=== PATIENT | female | born 2000 | race Caucasian/White ===

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

== ENCOUNTER 2022-08-01 16:36 | Emergency (ER) | payer OTHER, SELFPAY ==
--- NOTE | 2022-08-01 16:51 | ED.DIZZY ---
HPI - Dizziness General Chief Complaint: Nausea/Vomiting/Diarrhea <Rosalina Castillo CNP - Last Filed: 08/01/22 17:06> Stated Complaint: n+v dizziness <Rosalina Castillo CNP - Last Filed: 08/01/22 17:06> Time Seen by Provider: 08/01/22 17:39 <Rosalina Castillo CNP - Last Filed: 08/01/22 17:06> Source: patient <Wolf Josue MD - Last Filed: 08/02/22 00:52> Mode of arrival: ambulatory <Wolf Josue MD - Last Filed: 08/02/22 00:52> Limitations: no limitations <Wolf Josue MD - Last Filed: 08/02/22 00:52> History of Present Illness HPI Narrative: Patient feeling sick since yesterday vomited 4 times with dizziness body aches tiredness and chills no urinary complaints, complaining of diffuse abdominal discomfort++ no upper respiratory symptoms no other family member sick <Wolf Josue MD - Last Filed: 08/02/22 00:52> Related Data Home Medications: Home Medications Medication Instructions Recorded Confirmed fluoxetine 40 mg capsule 1 cap PO DAILY 06/24/21 06/24/21 Previous Rx's Medication Instructions Recorded cefuroxime axetil 250 mg tablet 250 mg PO BID 7 days #14 tabs 08/01/22 ondansetron 4 mg disintegrating 4 mg PO Q6-8H PRN nausea and 08/01/22 tablet vomiting #7 tabs <Rosalina Castillo CNP - Last Filed: 08/01/22 17:06> Allergies/Adverse Reactions: Allergies Allergy/AdvReac Type Severity Reaction Status Date / Time No Known Allergies Allergy Unverified 03/28/20 19:42 [No Known Allergies*] <Rosalina Castillo CNP - Last Filed: 08/01/22 17:06> Review of Systems Review of Systems: Yes all other systems are reviewed and are negative <Wolf Josue MD - Last Filed: 08/02/22 00:52> PMF[facility] Past Medical History Medical History: Medical History Depression <Rosalina Castillo CNP - Last Filed: 08/01/22 17:06> Social History Social History: Social History Alcohol intake: never Smoked in Last 30 Days: No Advance Directives: No Advance Directives Information Provided: No Patient : No <Rosalina Castillo CNP - Last Filed: 08/01/22 17:06> Physical Exam Vital Signs: Vital Signs: Last Vital Signs Temp 99.4 F 08/01/22 18:13 Pulse 103 H 08/01/22 18:13 Resp 16 08/01/22 18:13 BP 98/50 L 08/01/22 18:13 Pulse Ox 97 08/01/22 18:13 O2 Del Method 08/01/22 18:13 BMI result Body Mass Index 49.1 <Rosalina Castillo CNP - Last Filed: 08/01/22 17:06> Vital Signs: Last Vital Signs Temp 99.4 F 08/01/22 18:13 Pulse 103 H 08/01/22 18:13 Resp 16 08/01/22 18:13 BP 98/50 L 08/01/22 18:13 Pulse Ox 97 08/01/22 18:13 O2 Del Method 08/01/22 18:13 BMI result Body Mass Index 49.1 <Wolf Josue MD - Last Filed: 08/02/22 00:52> Appearance: Alert. Oriented X3. No acute distress. Eyes: No pallor or icterus ENT: Pharynx normal. Oral Mucosa moist Neck: Normal inspection. Neck supple. CVS: Normal heart rate and rhythm. Pulses normal. Respiratory: No respiratory distress. Equal air entry bilateral, no wheezing/rales/rhonchi Abdomen: Soft , mild epigastric tenderness. Bowel sounds are present, no mass palpable, no CVA tenderness Skin: Skin warm and dry. Normal skin color. Normal skin turgor. Extremities: No lower extremity edema. No calf tenderness Neuro: Oriented X 3. No motor deficit. <Wolf Josue MD - Last Filed: 08/02/22 00:52> Course Course Course Narrative: This is an RME: Additional HPI, ROS, PE not included below will be deferred to primary provider. Patient is a 22 year old female who presents to the ED for abdominal pain, nausea, vomiting x4 times today, yellow/green. Onset was last night. Today has associated dizziness. States last night she ate cheeseburger made at home and fruit snacks, a few hours later she began feeling ill. Denies any recent ill contacts. Plan: viral testing, labs, ondansetron orally. <Rosalina Castillo CNP - Last Filed: 08/01/22 17:06> Medications Administered Discontinued Medications Generic Name Dose Route Start Last Admin Trade Name Freq PRN Reason Stop Dose Admin Cefuroxime Axetil 250 mg 08/01/22 19:59 08/01/22 20:40 Cefuroxime Axetil 250 Mg Tablet PO 08/01/22 20:00 250 mg ONCE ONE Administration Ondansetron HCl 4 mg 08/01/22 17:03 08/01/22 17:46 Ondansetron Odt 4 Mg Tab.Rapdis TRANSLINGU 08/01/22 17:04 4 mg ONCE ONE Administration <Rosalina Castillo CNP - Last Filed: 08/01/22 17:06> Medications Administered Discontinued Medications Generic Name Dose Route Start Last Admin Trade Name Freq PRN Reason Stop Dose Admin Cefuroxime Axetil 250 mg 08/01/22 19:59 08/01/22 20:40 Cefuroxime Axetil 250 Mg Tablet PO 08/01/22 20:00 250 mg ONCE ONE Administration Ondansetron HCl 4 mg 08/01/22 17:03 08/01/22 17:46 Ondansetron Odt 4 Mg Tab.Rapdis TRANSLINGU 08/01/22 17:04 4 mg ONCE ONE Administration <Wolf Josue MD - Last Filed: 08/02/22 00:52> Medical Decision Making Medical Decision Making MDM Narrative: Patient acute nausea/vomiting workup shows UTI patient denies any symptoms will discharge patient home on Ceftin at this time patient taking p.o. fluids <Wolf Josue MD - Last Filed: 08/02/22 00:52> Lab Data [facility] Lab Attestation statement: I reviewed the patient's lab results. <Wolf Josue MD - Last Filed: 08/02/22 00:52> Result Diagrams: 08/01/22 17:24 08/01/22 17:24 <Rosalina Castillo, TECHNICAL SUPERVISOR - Last Filed: 08/01/22 17:06> Labs: Lab Results 08/01/22 08/01/22 08/01/22 Range/Units 17:24 17:24 17:29 WBC 13.0 H (4.8-10.8) X10*3/uL RBC 5.17 (4.20-5.50) X10*6/uL Hgb 13.3 (12.0-16.0) g/dl Hct 41.3 (37.0-47.0) % MCV 79.9 L (80.0-98.0) fL MCH 25.7 L (27.0-33.0) pg MCHC 32.2 (31.0-35.0) g/dl RDW 14.1 (11.0-16.0) % Plt Count 272 (160-400) X10*3/uL MPV 11.8 (9.4-12.3) fL Immature Gran % (Auto) 0.3 (0.0-0.4) % Neut % (Auto) 92.4 H (45-73) % Lymph % (Auto) 3.1 L (20-40) % [place] % (Auto) 3.9 (2-11) % Eos % (Auto) 0.1 (0-4) % Baso % (Auto) 0.2 (0-2) % Lymph # (Auto) 0.4 L (1.2-4.9) X10*3/uL [place] # (Auto) 0.5 (0.1-1.2) X10*3/uL Eos # (Auto) 0.0 (0.0-0.4) X10*3/uL Baso # (Auto) 0.0 (0.0-0.2) X10*3/uL Abs Immat Gran (auto) 0.04 H (0.00-0.03) X10*3/uL Absolute Neuts (auto) 12.0 H (2.0-8.3) x10*3/uL Absolute Nucleated RBC 0.000 (0.0-0.012) X10*3/uL Nucleated RBC % (auto) 0.0 (0.0-0.2) /100WBC Sodium 138 (135-145) mmol/L Potassium 4.4 (3.3-5.1) mmol/L Chloride 105 (96-108) mmol/L Carbon Dioxide 21 L (22-29) mmol/L Anion Gap 16 (12-20) BUN 15 (9-16) mg/dL Creatinine 0.79 (0.5-1.4) mg/dL Estim Creat Clear Calc 157.3 Estimated GFR > 60 Random Glucose 119 H (60-115) mg/dL Calcium 8.8 (8.4-10.2) mg/dL Total Bilirubin 0.6 (0.0-1.0) mg/dL AST 10 (5-31) U/L ALT 12 (0-31) U/L Alkaline Phosphatase 39 (39-117) U/L Total Protein 6.6 (6.5-8.0) g/dL Albumin 4.0 (3.5-5.0) g/dL Lipase 11 (8-78) U/L Urine Color Urine Appearance Urine pH (5.0-9.0) Ur Specific [place] (1.005-1.025) Urine Protein (Neg-Trace) mg/dL Urine Glucose (UA) (Negative) mg/dL Urine Ketones (Negative) mg/dL Urine Blood (Negative) Urine Nitrite (Negative) Ur Leukocyte Esterase (Negative) Urine RBC (0-2) /HPF Urine WBC (0-5) /HPF Ur Squamous Epith Cells (0-2) /HPF Urine Bacteria (None Seen) Hyaline Casts (0-2) /LPF Urine Test (NEGATIVE) COVID-19 ([facility]) (Negative) COVID-19 Clin Com Influenza Type A ([place]) Negative (Negative) Influenza Type B ([place]) Negative (Negative) Influenza A & B Note See Note 08/01/22 08/01/22 08/01/22 Range/Units 17:29 19:21 19:21 WBC (4.8-10.8) X10*3/uL RBC (4.20-5.50) X10*6/uL Hgb (12.0-16.0) g/dl Hct (37.0-47.0) % MCV (80.0-98.0) fL MCH (27.0-33.0) pg MCHC (31.0-35.0) g/dl RDW (11.0-16.0) % Plt Count (160-400) X10*3/uL MPV (9.4-12.3) fL Immature Gran % (Auto) (0.0-0.4) % Neut % (Auto) (45-73) % Lymph % (Auto) (20-40) % [place] % (Auto) (2-11) % Eos % (Auto) (0-4) % Baso % (Auto) (0-2) % Lymph # (Auto) (1.2-4.9) X10*3/uL [place] # (Auto) (0.1-1.2) X10*3/uL Eos # (Auto) (0.0-0.4) X10*3/uL Baso # (Auto) (0.0-0.2) X10*3/uL Abs Immat Gran (auto) (0.00-0.03) X10*3/uL Absolute Neuts (auto) (2.0-8.3) x10*3/uL Absolute Nucleated RBC (0.0-0.012) X10*3/uL Nucleated RBC % (auto) (0.0-0.2) /100WBC Sodium (135-145) mmol/L Potassium (3.3-5.1) mmol/L Chloride (96-108) mmol/L Carbon Dioxide (22-29) mmol/L Anion Gap (12-20) BUN (9-16) mg/dL Creatinine (0.5-1.4) mg/dL Estim Creat Clear Calc Estimated GFR Random Glucose (60-115) mg/dL Calcium (8.4-10.2) mg/dL Total Bilirubin (0.0-1.0) mg/dL AST (5-31) U/L ALT (0-31) U/L Alkaline Phosphatase (39-117) U/L Total Protein (6.5-8.0) g/dL Albumin (3.5-5.0) g/dL Lipase (8-78) U/L Urine Color Yellow Urine Appearance Clear Urine pH 5.5 (5.0-9.0) Ur Specific [place] 1.020 (1.005-1.025) Urine Protein Negative (Neg-Trace) mg/dL Urine Glucose (UA) Negative (Negative) mg/dL Urine Ketones Trace (Negative) mg/dL Urine Blood Negative (Negative) Urine Nitrite Positive H (Negative) Ur Leukocyte Esterase Trace H (Negative) Urine RBC 0-2 (0-2) /HPF Urine WBC 0-5 (0-5) /HPF Ur Squamous Epith Cells 3-5 (0-2) /HPF Urine Bacteria 4+ (None Seen) Hyaline Casts 0-2 (0-2) /LPF Urine Test NEGATIVE (NEGATIVE) COVID-19 ([facility]) Negative (Negative) COVID-19 Clin Com See Note Influenza Type A ([place]) (Negative) Influenza Type B ([place]) (Negative) Influenza A & B Note <Rosalina Castillo CNP - Last Filed: 08/01/22 17:06> Lab Results 08/01/22 08/01/22 08/01/22 Range/Units 17:24 17:24 17:29 WBC 13.0 H (4.8-10.8) X10*3/uL RBC 5.17 (4.20-5.50) X10*6/uL Hgb 13.3 (12.0-16.0) g/dl Hct 41.3 (37.0-47.0) % MCV 79.9 L (80.0-98.0) fL MCH 25.7 L (27.0-33.0) pg MCHC 32.2 (31.0-35.0) g/dl RDW 14.1 (11.0-16.0) % Plt Count 272 (160-400) X10*3/uL MPV 11.8 (9.4-12.3) fL Immature Gran % (Auto) 0.3 (0.0-0.4) % Neut % (Auto) 92.4 H (45-73) % Lymph % (Auto) 3.1 L (20-40) % [place] % (Auto) 3.9 (2-11) % Eos % (Auto) 0.1 (0-4) % Baso % (Auto) 0.2 (0-2) % Lymph # (Auto) 0.4 L (1.2-4.9) X10*3/uL [place] # (Auto) 0.5 (0.1-1.2) X10*3/uL Eos # (Auto) 0.0 (0.0-0.4) X10*3/uL Baso # (Auto) 0.0 (0.0-0.2) X10*3/uL Abs Immat Gran (auto) 0.04 H (0.00-0.03) X10*3/uL Absolute Neuts (auto) 12.0 H (2.0-8.3) x10*3/uL Absolute Nucleated RBC 0.000 (0.0-0.012) X10*3/uL Nucleated RBC % (auto) 0.0 (0.0-0.2) /100WBC Sodium 138 (135-145) mmol/L Potassium 4.4 (3.3-5.1) mmol/L Chloride 105 (96-108) mmol/L Carbon Dioxide 21 L (22-29) mmol/L Anion Gap 16 (12-20) BUN 15 (9-16) mg/dL Creatinine 0.79 (0.5-1.4) mg/dL Estim Creat Clear Calc 157.3 Estimated GFR > 60 Random Glucose 119 H (60-115) mg/dL Calcium 8.8 (8.4-10.2) mg/dL Total Bilirubin 0.6 (0.0-1.0) mg/dL AST 10 (5-31) U/L ALT 12 (0-31) U/L Alkaline Phosphatase 39 (39-117) U/L Total Protein 6.6 (6.5-8.0) g/dL Albumin 4.0 (3.5-5.0) g/dL Lipase 11 (8-78) U/L Urine Color Urine Appearance Urine pH (5.0-9.0) Ur Specific [place] (1.005-1.025) Urine Protein (Neg-Trace) mg/dL Urine Glucose (UA) (Negative) mg/dL Urine Ketones (Negative) mg/dL Urine Blood (Negative) Urine Nitrite (Negative) Ur Leukocyte Esterase (Negative) Urine RBC (0-2) /HPF Urine WBC (0-5) /HPF Ur Squamous Epith Cells (0-2) /HPF Urine Bacteria (None Seen) Hyaline Casts (0-2) /LPF Urine Test (NEGATIVE) COVID-19 ([facility]) (Negative) COVID-19 Clin Com Influenza Type A ([place]) Negative (Negative) Influenza Type B ([place]) Negative (Negative) Influenza A & B Note See Note 08/01/22 08/01/22 08/01/22 Range/Units 17:29 19:21 19:21 WBC (4.8-10.8) X10*3/uL RBC (4.20-5.50) X10*6/uL Hgb (12.0-16.0) g/dl Hct (37.0-47.0) % MCV (80.0-98.0) fL MCH (27.0-33.0) pg MCHC (31.0-35.0) g/dl RDW (11.0-16.0) % Plt Count (160-400) X10*3/uL MPV (9.4-12.3) fL Immature Gran % (Auto) (0.0-0.4) % Neut % (Auto) (45-73) % Lymph % (Auto) (20-40) % [place] % (Auto) (2-11) % Eos % (Auto) (0-4) % Baso % (Auto) (0-2) % Lymph # (Auto) (1.2-4.9) X10*3/uL [place] # (Auto) (0.1-1.2) X10*3/uL Eos # (Auto) (0.0-0.4) X10*3/uL Baso # (Auto) (0.0-0.2) X10*3/uL Abs Immat Gran (auto) (0.00-0.03) X10*3/uL Absolute Neuts (auto) (2.0-8.3) x10*3/uL Absolute Nucleated RBC (0.0-0.012) X10*3/uL Nucleated RBC % (auto) (0.0-0.2) /100WBC Sodium (135-145) mmol/L Potassium (3.3-5.1) mmol/L Chloride (96-108) mmol/L Carbon Dioxide (22-29) mmol/L Anion Gap (12-20) BUN (9-16) mg/dL Creatinine (0.5-1.4) mg/dL Estim Creat Clear Calc Estimated GFR Random Glucose (60-115) mg/dL Calcium (8.4-10.2) mg/dL Total Bilirubin (0.0-1.0) mg/dL AST (5-31) U/L ALT (0-31) U/L Alkaline Phosphatase (39-117) U/L Total Protein (6.5-8.0) g/dL Albumin (3.5-5.0) g/dL Lipase (8-78) U/L Urine Color Yellow Urine Appearance Clear Urine pH 5.5 (5.0-9.0) Ur Specific [place] 1.020 (1.005-1.025) Urine Protein Negative (Neg-Trace) mg/dL Urine Glucose (UA) Negative (Negative) mg/dL Urine Ketones Trace (Negative) mg/dL Urine Blood Negative (Negative) Urine Nitrite Positive H (Negative) Ur Leukocyte Esterase Trace H (Negative) Urine RBC 0-2 (0-2) /HPF Urine WBC 0-5 (0-5) /HPF Ur Squamous Epith Cells 3-5 (0-2) /HPF Urine Bacteria 4+ (None Seen) Hyaline Casts 0-2 (0-2) /LPF Urine Test NEGATIVE (NEGATIVE) COVID-19 ([facility]) Negative (Negative) COVID-19 Clin Com See Note Influenza Type A (WILFREDO) (Negative) Influenza Type B (WILFREDO) (Negative) Influenza A & B Note <Wolf Josue MD - Last Filed: 08/02/22 00:52> Discharge Plan Discharge Clinical Impression: UTI (urinary tract infection) <Rosalina Castillo CNP - Last Filed: 08/01/22 17:06> Patient Disposition: Home, Self-Care <Rosalina Castillo CNP - Last Filed: 08/01/22 17:06> Instructions: Urinary Tract Infection in Women (ED) <Rosalina Castillo CNP - Last Filed: 08/01/22 17:06> Additional Instructions: Drink plenty of fluids Antibiotic as prescribed Nausea medication as prescribed Report to PCP/ED if vomiting continues/high fever/flank pain <Rosalina Castillo CNP - Last Filed: 08/01/22 17:06> Prescriptions: New cefuroxime axetil 250 mg tablet 250 mg PO BID 7 Days Qty: 14 0RF ondansetron 4 mg tablet,disintegrating 4 mg PO Q6-8H PRN (Reason: nausea and vomiting) Qty: 7 0RF No Action fluoxetine 40 mg capsule 1 cap PO DAILY <Rosalina Castillo CNP - Last Filed: 08/01/22 17:06> Interventions: ED Discharge Assessment Last Done: 08/01/22 20:44 <Rosalina Castillo CNP - Last Filed: 08/01/22 17:06> Discharge Date/Time: 08/01/22 20:50 <Rosalina Castillo CNP - Last Filed: 08/01/22 17:06>
[2022-08-01 17:00] VITALS: BP 111/73; PULSE 85; RESP 16; TEMP 35.8; O2SAT 98; BMI 49.1
[2022-08-01 17:45] LABS: Basophils Percent Auto 0.2 % (0-2); Eosinophils Percent Auto 0.1 % (0-4); Hematocrit 41.3 % (37.0-47.0); Hemoglobin 13.3 g/dl (12.0-16.0); Imm Gran Abs Auto 0.04 X10*3/uL (0.00-0.03); Imm Gran Pct Auto 0.3 % (0.0-0.4); Lymphocytes Absolute Auto 0.4 X10*3/uL (1.2-4.9); Lymphocytes Percent Auto 3.1 % (20-40); Mean Corpuscular HGB Conc 32.2 g/dl (31.0-35.0); Mean Corpuscular Hemoglobin 25.7 pg (27.0-33.0); Mean Corpuscular Volume 79.9 fL (80.0-98.0); Mean Platelet Volume 11.8 fL (9.4-12.3); Monocytes Absolute Auto 0.5 X10*3/uL (0.1-1.2); Monocytes Percent Auto 3.9 % (2-11); Neutrophils Percent Auto 92.4 % (45-73); Platelet Count 272 X10*3/uL (160-400); Red Blood Count 5.17 X10*6/uL (4.20-5.50); Red Cell Distribution Width 14.1 % (11.0-16.0); SCAN SMEAR FLAG 1
[2022-08-01 17:46] LABS: MANUAL DIFF FLAG NO
[2022-08-01] MEDS: Ondansetron ODT 4 MG TAB.RAPDIS TRANSLINGU (17:46)
[2022-08-01 17:47] VITALS: BP 105/50; PULSE 107; RESP 18; O2SAT 96
[2022-08-01 18:09] LABS: COVID-19 Test Negative (Negative); IDNOW Serial# 08D9AD1C; Influenza A Negative (Negative); Influenza B2 Negative (Negative)
[2022-08-01 18:13] VITALS: BP 98/50; PULSE 103; RESP 16; TEMP 37.4; O2SAT 97
[2022-08-01 18:13] LABS: Alanine Aminotransferase 12 U/L (0-31); Anion Gap 16 (12-20); Aspartate Amino Transferase 10 U/L (5-31); Bilirubin Total 0.6 mg/dL (0.0-1.0); Blood Urea Nitrogen 15 mg/dL (9-16); Calcium 8.8 mg/dL (8.4-10.2); Carbon Dioxide 21 mmol/L (22-29); Chloride 105 mmol/L (96-108); Creatinine Clr Calc Pharmacy 157.3; Estimated Glomerular Filt Rate > 60; Glucose Random 119 mg/dL (60-115); Lipase 11 U/L (8-78); Potassium 4.4 mmol/L (3.3-5.1); Sodium 138 mmol/L (135-145); Total Protein 6.6 g/dL (6.5-8.0)
[2022-08-01 18:26] LABS: Alkaline Phosphatase 39 U/L (39-117)
--- NOTE | 2022-08-01 18:30 | PC.NURSE ---
patient a/ox4 . berhanela . heart rate regular at 100 beats per minute . breathing even and unlabored . skin pink warm and dry . abdomen soft , positive bowel sounds in all four quadrants . patient had one episode of vomiting when brought back from triage ,. medicated with zofran as ordered . patient placed on monitoring tech . labs drawn and sent . patient aware of plan of care .
[2022-08-01 19:46] LABS: Appearance Urine Clear; Color Urine Yellow; Glucose Urine UA Negative (Negative); Leukocyte Esterase Urine Trace (Negative); Nitrite Urine Positive (Negative); PH 5.5 (5.0-9.0); UMIC TRIGGER UACC YES; Urine Blood Negative (Negative); Urine Ketones Trace mg/dL (Negative); Urine Protein Negative (Neg-Trace)
[2022-08-01 19:48] LABS: UPreg QC Valid YES; Urine Pregnancy NEGATIVE (NEGATIVE)
[2022-08-01 19:49] LABS: Bacteria Urine 4+ (None Seen); Hyaline Casts Urine 0-2 /LPF (0-2); RBC Urine 0-2 /HPF (0-2); UACC Culture Trigger YES; WBC Urine 0-5 /HPF (0-5)
== END 2022-08-01 20:50 | disposition home or self-care (01) ==
PROVIDERS: Nurse Practitioner Family; Emergency Provider Internal Medicine
DX: N39.0 Urinary tract infection, site not specified (principal); B96.20 Unspecified Escherichia coli [E. coli] as the cause of diseases classified elsewhere; Z20.822 Contact with and (suspected) exposure to COVID-19; Z79.899 Other long term (current) drug therapy
CPT/HCPCS: 36415; 80053; 81001; 81025; 83690; 85025; 87086; 87088; 87186; 87502; 87635; 99283; 99284